=== PATIENT | male | born 1940 | race Caucasian/White ===

== ENCOUNTER → 2020-09-11 | Day surgery (SDC) | payer OTHER | END | disposition home or self-care (01) | LOC: MSO 08:21 | DX: H25.13 Age-related nuclear cataract, bilateral (principal); H35.3110 Nonexudative age-related macular degeneration, right eye, stage unspecified; H35.30 Unspecified macular degeneration; J44.9 Chronic obstructive pulmonary disease, unspecified; I10 Essential (primary) hypertension; E78.00 Pure hypercholesterolemia, unspecified; R56.9 Unspecified convulsions; Z79.899 Other long term (current) drug therapy; Z88.2 Allergy status to sulfonamides; Z86.73 Personal history of transient ischemic attack (TIA), and cerebral infarction without residual deficits | CPT/HCPCS: 00142; J0171; J2250; V2632 ==

== ENCOUNTER → 2020-10-09 | Day surgery (SDC) | payer OTHER | LOC: MSO 12:55 | DX: H25.12 Age-related nuclear cataract, left eye (principal); H35.3110 Nonexudative age-related macular degeneration, right eye, stage unspecified; H35.30 Unspecified macular degeneration; I10 Essential (primary) hypertension; R56.9 Unspecified convulsions; Z79.899 Other long term (current) drug therapy | CPT/HCPCS: 00142; J0171; J2250; V2632 ==